=== PATIENT | female | born 1990 | race Caucasian/White ===

== ENCOUNTER 2018-12-14 19:09 | Inpatient (IN) | payer OTHER ==
[~2018-12-14] VITALS: Ht 170.2 cm; Wt 80.9 kg
[2018-12-14] MEDS ORDERED: RISP1 PO (19:36)
[2018-12-14] MEDS ORDERED: ARIP5TAB8 PO (19:36)
[2018-12-14 19:55] LABS: BASOPHILS % (AUTO) 0.5 % (0.0-2.0); EOSINOPHILS % (AUTO) 0.7 % (1.0-6.0); HEMATOCRIT 35.1 % (36-46); HEMOGLOBIN 11.5 g/dL (12.0-16.0); LYMPHOCYTES # (AUTO) 2.4 K/uL (1.0-4.8); LYMPHOCYTES % (AUTO) 25.1 % (22.0-44.0); MEAN CORPUSCULAR HGB CONC 32.7 G/dL (31.0-37.0); MEAN CORPUSCULAR VOLUME 89 fL (80-100); MONOCYTES # (AUTO) 0.8 K/uL (0.1-1.0); MONOCYTES % (AUTO) 8.1 % (2.0-9.0); NEUTROPHILS # (AUTO) 6.2 K/uL (1.8-7.7); NEUTROPHILS % (AUTO) 65.6 % (40.0-70.0); PLATELET COUNT (AUTO) 334 K/uL (150-450); RED BLOOD CELL COUNT(AUTO) 3.95 MIL/uL (4.00-5.20); RED CELL DISTRIBUTION WIDTH 15.7 % (11.5-14.5)
[2018-12-14 20:07] LABS: ANION GAP 8 mmol/L (8-16); CALCIUM, TOTAL 9.2 mg/dL (8.8-10.5); CARBON DIOXIDE 27 mmol/L (22-29); CHLORIDE 105 mmol/L (98-107); CREATININE 0.75 mg/dL (0.60-1.30); GLOMERULAR FILTR. RATE CALC > 60 mL/min (>60); GLUCOSE,RANDOM 107 mg/dL (70-110); POTASSIUM 3.3 mmol/L (3.5-5.1); SODIUM SERUM 140 mmol/L (136-145); UREA NITROGEN, BLOOD 8 mg/dL (7-18)
[2018-12-14 20:15] LABS: ALANINE AMINOTRANSFERASE 16 U/L (12-78); ALBUMIN 3.5 g/dL (3.4-5.0); ALKALINE PHOSPHATASE 74 U/L (46-116); ASPARTATE AMINOTRANSFERASE 15 U/L (15-37); BILIRUBIN,TOTAL 0.2 mg/dL (0.1-1.0); TOTAL PROTEIN, SERUM 7.2 g/dL (6.4-8.2)
[2018-12-14 20:50] LABS: AMPHET/METH SCREEN,URINE NEGATIVE (NEGATIVE); BARBITURATE SCREEN, URINE NEGATIVE (NEGATIVE); BENZODIAZEPINES SCREEN,URINE NEGATIVE (NEGATIVE); CANNABINOID SCREEN,URINE POSITIVE (NEGATIVE); COCAINE SCREEN,URINE NEGATIVE (NEGATIVE); METHADONE SCREEN, URINE NEGATIVE (NEGATIVE); OPIATE SCREEN,URINE NEGATIVE (NEGATIVE)
[2018-12-14 20:51] LABS: PHENCYCLIDINE SCREEN,URINE NEGATIVE (NEGATIVE)
[2018-12-14] MEDS ORDERED: POTASSIUM CHLORIDE 20 MEQ ER TABLET PO ONE (21:00)
[2018-12-15] MEDS: HydrOXYzine PAMOATE 50 MG CAPSULE PO PRN ×2 (01:13→10:04)
[2018-12-15] MEDS ORDERED: IBUPROFEN 800 MG TABLET PO ONE (02:45)
[2018-12-15] MEDS: TraZODone HCL 50 MG TABLET PO PRN ×3 (02:51→20:13)
[2018-12-15] MEDS: HALOPERIDOL 5 MG TABLET PO PRN ×2 (02:51→17:16)
[2018-12-15 05:52] LABS: CHOL/HDL RATIO 3.1 (3.9-5.7)
[2018-12-15 13:00] VITALS: BP 101/60
[2018-12-15] MEDS ORDERED: MAGNESIUM HYDROXIDE SUSPENSION 30 ML UDCUP PO PRN (15:45)
[2018-12-15] MEDS ORDERED: ALBUTEROL SULFATE HFA 90 MCG/PUFF 8 GM INHALER IH PRN (15:45)
[2018-12-15] MEDS ORDERED: MAG HYDROX/AL HYDROX/SIMETH ES 30 ML SUSPENSION UDCUP PO PRN (15:45)
[2018-12-15] MEDS ORDERED: ACETAMINOPHEN 325 MG TABLET PO PRN (15:45)
[2018-12-15] MEDS ORDERED: ONDANSETRON HCL 4 MG TABLET PO PRN (15:45)
[2018-12-15] MEDS ORDERED: PETROLATUM,WHITE 28 GM JELLY TP PRN (15:45)
[2018-12-15] MEDS ORDERED: NICOTINE 14 MG/24 HOUR PATCH TD PRN (15:45)
[2018-12-15] MEDS ORDERED: DOCUSATE SODIUM 100 MG CAPSULE PO PRN (15:45)
[2018-12-15] MEDS ORDERED: LOPERAMIDE HCL 2 MG CAPSULE PO PRN (15:45)
[2018-12-15] MEDS ORDERED: CloNIDine HCL 0.1 MG TABLET PO PRN (15:45)
[2018-12-15] MEDS ORDERED: GuaiFENesin/D-METHORPHAN [SUGAR-FREE] 200-20MG/10 ML SYRUP UDCUP PO PRN (15:45)
[2018-12-15] MEDS ORDERED: IBUPROFEN 400 MG TABLET PO PRN (15:45)
[2018-12-15 19:17] VITALS: BP 110/69
[2018-12-15] MEDS: OLANZapine 5 MG TABLET PO SCH (20:13)
[2018-12-15 23:25] VITALS: BP 109/56
[2018-12-16 04:35] VITALS: BP 96/60
[2018-12-16 07:43] VITALS: BP 107/65
[2018-12-16] MEDS: HydrOXYzine PAMOATE 50 MG CAPSULE PO PRN ×2 (08:00→12:30)
[2018-12-16 11:56] VITALS: BP 98/53
[2018-12-16 15:57] VITALS: BP 109/78
[2018-12-16] MEDS: HALOPERIDOL 5 MG TABLET PO PRN (18:17)
[2018-12-16 20:40] VITALS: BP 118/74
[2018-12-16] MEDS: OLANZapine 5 MG TABLET PO SCH (21:23)
[2018-12-17 04:53] VITALS: BP 101/68
[2018-12-17] MEDS: HALOPERIDOL 5 MG TABLET PO PRN (07:51)
[2018-12-17 08:04] VITALS: BP 111/73
[2018-12-17] MEDS ORDERED: TRIAMCINOLONE 0.5% 15 GM CREAM TP PRN (11:45)
[2018-12-17 11:59] VITALS: BP 96/74
[2018-12-17] MEDS ORDERED: OLAN5TAB27 PO (12:33)
[2018-12-17] MEDS: HydrOXYzine PAMOATE 50 MG CAPSULE PO PRN (12:43)
[2018-12-17] MEDS ORDERED: OLAN10TA3 PO (12:47)
== END 2018-12-17 14:10 | DRG 885 ==
LOC: EMS 19:10 → 6S 12-15 12:25
DX: F31.4 Bipolar disorder, current episode depressed, severe, without psychotic features (principal); R45.851 Suicidal ideations; E87.6 Hypokalemia; F19.10 Other psychoactive substance abuse, uncomplicated; F60.3 Borderline personality disorder; F17.210 Nicotine dependence, cigarettes, uncomplicated; F12.10 Cannabis abuse, uncomplicated; F41.9 Anxiety disorder, unspecified; Z91.5 Personal history of self-harm
CPT/HCPCS: 84132; G0480

== ENCOUNTER 2018-12-24 14:56 | Inpatient (IN) | payer OTHER ==
[~2018-12-24] VITALS: Ht 172.7 cm; Wt 86.4 kg
[~2018-12-24 14:56] MED LIST: OLAN10TA3 PO; OLAN5TAB27 PO
[2018-12-24 15:36] LABS: BASOPHILS % (AUTO) 0.5 % (0.0-2.0); EOSINOPHILS % (AUTO) 0.7 % (1.0-6.0); HEMATOCRIT 33.7 % (36-46); LYMPHOCYTES % (AUTO) 26.7 % (22.0-44.0); MEAN CORPUSCULAR HEMOGLOBIN 29.2 pg (26.0-34.0); MEAN CORPUSCULAR HGB CONC 32.5 G/dL (31.0-37.0); MEAN CORPUSCULAR VOLUME 90 fL (80-100); MONOCYTES # (AUTO) 0.6 K/uL (0.1-1.0); MONOCYTES % (AUTO) 7.9 % (2.0-9.0); NEUTROPHILS # (AUTO) 4.8 K/uL (1.8-7.7); NEUTROPHILS % (AUTO) 64.2 % (40.0-70.0); PLATELET COUNT (AUTO) 377 K/uL (150-450); RED BLOOD CELL COUNT(AUTO) 3.75 MIL/uL (4.00-5.20); RED CELL DISTRIBUTION WIDTH 15.1 % (11.5-14.5)
[2018-12-24 15:44] LABS: ANION GAP 11 mmol/L (8-16); CALCIUM, TOTAL 8.9 mg/dL (8.8-10.5); CARBON DIOXIDE 29 mmol/L (22-29); CHLORIDE 103 mmol/L (98-107); CREATININE 0.78 mg/dL (0.60-1.30); GLOMERULAR FILTR. RATE CALC > 60 mL/min (>60); GLUCOSE,RANDOM 93 mg/dL (70-110); SODIUM SERUM 143 mmol/L (136-145); UREA NITROGEN, BLOOD 10 mg/dL (7-18)
[2018-12-24 16:04] LABS: ALANINE AMINOTRANSFERASE 14 U/L (12-78); ALBUMIN 3.6 g/dL (3.4-5.0); ALKALINE PHOSPHATASE 71 U/L (46-116); ASPARTATE AMINOTRANSFERASE 16 U/L (15-37); BILIRUBIN,TOTAL 0.3 mg/dL (0.1-1.0); HCG,QUANTITATIVE < 1 mIU/mL (0-6); TOTAL PROTEIN, SERUM 7.5 g/dL (6.4-8.2)
[2018-12-24 16:06] LABS: ACETAMINOPHEN < 2 mcg/mL (10-30)
[2018-12-24 16:07] LABS: SALICYLATE 1.2 mg/dL (2.8-20.0)
[2018-12-24] MEDS ORDERED: 0.9% SODIUM CHLORIDE 10 ML SYRINGE IVP PRN ×2 (16:30→20:15)
[2018-12-24 17:25] VITALS: BP 132/85
[2018-12-24 20:00] VITALS: BP 121/77
[2018-12-24] MEDS ORDERED: OxyCODONE HCL/ACETAMINOPHEN 5-325 MG TABLET PO PRN ×2 (20:15)
[2018-12-24] MEDS ORDERED: FAMOTIDINE 10 MG/ML 2 ML VIAL IVP SCH (20:15)
[2018-12-24] MEDS ORDERED: ONDANSETRON HCL 4 MG/2 ML VIAL IVP PRN (20:15)
[2018-12-24] MEDS ORDERED: TraZODone HCL 50 MG TABLET PO PRN (20:30)
[2018-12-24] MEDS: DOCUSATE SODIUM 100 MG CAPSULE PO SCH (20:37)
[2018-12-24] MEDS: OLANZapine 5 MG TABLET PO SCH (20:37)
[2018-12-24] MEDS: HALOPERIDOL 5 MG TABLET PO PRN (20:37)
[2018-12-24 21:46] LABS: AMPHET/METH SCREEN,URINE NEGATIVE (NEGATIVE); BARBITURATE SCREEN, URINE NEGATIVE (NEGATIVE); BENZODIAZEPINES SCREEN,URINE NEGATIVE (NEGATIVE); CANNABINOID SCREEN,URINE POSITIVE (NEGATIVE); COCAINE SCREEN,URINE NEGATIVE (NEGATIVE); METHADONE SCREEN, URINE NEGATIVE (NEGATIVE); OPIATE SCREEN,URINE NEGATIVE (NEGATIVE)
[2018-12-24 21:47] LABS: PHENCYCLIDINE SCREEN,URINE NEGATIVE (NEGATIVE)
[2018-12-25] VITALS: BP 118/71
[2018-12-25 04:00] VITALS: BP 117/69
[2018-12-25 05:27] LABS: BASOPHILS % (AUTO) 0.6 % (0.0-2.0); EOSINOPHILS % (AUTO) 1.8 % (1.0-6.0); HEMATOCRIT 32.9 % (36-46); HEMOGLOBIN 10.8 g/dL (12.0-16.0); LYMPHOCYTES # (AUTO) 2.5 K/uL (1.0-4.8); LYMPHOCYTES % (AUTO) 34.8 % (22.0-44.0); MEAN CORPUSCULAR HEMOGLOBIN 29.5 pg (26.0-34.0); MEAN CORPUSCULAR HGB CONC 32.8 G/dL (31.0-37.0); MEAN CORPUSCULAR VOLUME 90 fL (80-100); MONOCYTES # (AUTO) 0.6 K/uL (0.1-1.0); MONOCYTES % (AUTO) 8.9 % (2.0-9.0); NEUTROPHILS # (AUTO) 3.8 K/uL (1.8-7.7); NEUTROPHILS % (AUTO) 53.9 % (40.0-70.0); PLATELET COUNT (AUTO) 337 K/uL (150-450); RED BLOOD CELL COUNT(AUTO) 3.65 MIL/uL (4.00-5.20); RED CELL DISTRIBUTION WIDTH 15.4 % (11.5-14.5)
[2018-12-25 05:34] LABS: ANION GAP 8 mmol/L (8-16); CALCIUM, TOTAL 8.6 mg/dL (8.8-10.5); CARBON DIOXIDE 25 mmol/L (22-29); CHLORIDE 105 mmol/L (98-107); CREATININE 0.83 mg/dL (0.60-1.30); GLOMERULAR FILTR. RATE CALC > 60 mL/min (>60); GLUCOSE,RANDOM 94 mg/dL (70-110); POTASSIUM 3.6 mmol/L (3.5-5.1); SODIUM SERUM 138 mmol/L (136-145); UREA NITROGEN, BLOOD 9 mg/dL (7-18)
[2018-12-25 09:00] VITALS: BP 120/70
[2018-12-25] MEDS: TRIAMCINOLONE 0.025% 15 GM CREAM TP SCH ×2 (09:00→20:58)
[2018-12-25] MEDS: DOCUSATE SODIUM 100 MG CAPSULE PO SCH ×2 (09:00→20:58)
[2018-12-25] MEDS: FAMOTIDINE 20 MG TABLET PO SCH (09:01)
[2018-12-25] MEDS: ARIPiprazole 10 MG TABLET PO SCH (10:11)
[2018-12-25] MEDS: HALOPERIDOL 5 MG TABLET PO PRN ×3 (10:40→22:40)
[2018-12-25] MEDS: HydrOXYzine PAMOATE 50 MG CAPSULE PO PRN ×2 (10:40→15:42)
[2018-12-25 11:14] VITALS: BP 115/71
[2018-12-25 16:47] VITALS: BP 111/68
[2018-12-25 20:31] VITALS: BP 116/64
[2018-12-25] MEDS: OLANZapine 5 MG TABLET PO SCH (20:57)
[2018-12-25] MEDS ORDERED: BENZTROPINE MESYLATE 1 MG TABLET PO SCH (21:00)
[2018-12-26 07:31] VITALS: BP 113/76
[2018-12-26] MEDS: FAMOTIDINE 20 MG TABLET PO SCH (08:32)
[2018-12-26] MEDS: ARIPiprazole 10 MG TABLET PO SCH (08:32)
[2018-12-26] MEDS: TRIAMCINOLONE 0.025% 15 GM CREAM TP SCH ×2 (08:33→19:54)
[2018-12-26] MEDS: DOCUSATE SODIUM 100 MG CAPSULE PO SCH ×2 (08:35→19:54)
[2018-12-26] MEDS: HydrOXYzine PAMOATE 50 MG CAPSULE PO PRN ×3 (10:31→19:11)
[2018-12-26 11:49] VITALS: BP 109/78
[2018-12-26 15:51] VITALS: BP 102/71
[2018-12-26 20:01] VITALS: BP 104/68
[2018-12-26] MEDS ORDERED: OLANZapine 10 MG TABLET PO SCH (21:00)
[2018-12-26] MEDS ORDERED: ARIPiprazole 10 MG TABLET PO SCH (21:00)
[2018-12-26 23:40] VITALS: BP 134/68
[2018-12-27] MEDS: HALOPERIDOL 5 MG TABLET PO PRN ×2 (00:25→08:00)
[2018-12-27 05:48] VITALS: BP 107/65
[2018-12-27 07:38] VITALS: BP 137/79
[2018-12-27] MEDS: FAMOTIDINE 20 MG TABLET PO SCH (07:55)
[2018-12-27] MEDS: TRIAMCINOLONE 0.025% 15 GM CREAM TP SCH (07:56)
[2018-12-27] MEDS: DOCUSATE SODIUM 100 MG CAPSULE PO SCH (07:56)
[2018-12-27] MEDS ORDERED: OLAN10TA20 PO ×2 (12:00→12:01)
== END 2018-12-27 12:05 | DRG 885 ==
LOC: EMS 14:57 → 6S 16:23
PROVIDERS: ADMIT Internal Medicine; ATTEND Internal Medicine
DX: F31.4 Bipolar disorder, current episode depressed, severe, without psychotic features (principal); F60.3 Borderline personality disorder; F44.81 Dissociative identity disorder; F12.10 Cannabis abuse, uncomplicated; F29 Unspecified psychosis not due to a substance or known physiological condition; D64.9 Anemia, unspecified; R21 Rash and other nonspecific skin eruption; F17.210 Nicotine dependence, cigarettes, uncomplicated; Z79.899 Other long term (current) drug therapy; Z98.891 History of uterine scar from previous surgery
CPT/HCPCS: 87081; G0480; G0481; J3490

== ENCOUNTER → 2020-08-21 | Emergency (ER) | payer OTHER ==
[~2020-08-21] VITALS: Ht 170.2 cm; Wt 86.4 kg
[~2020-08-21] MED LIST changes: +LORazepam 2 MG TABLET PO ONE; +OLAN10TA20 PO; -OLAN10TA3 PO; -OLAN5TAB27 PO
[2020-08-21 09:24] VITALS: BP 107/68
[2020-08-21 10:04] LABS: BASOPHILS % (AUTO) 0.4 % (0.0-2.0); EOSINOPHILS % (AUTO) 0.1 % (1.0-6.0); HEMATOCRIT 36.3 % (36-46); HEMOGLOBIN 11.8 g/dL (12.0-16.0); LYMPHOCYTES # (AUTO) 1.3 K/uL (1.0-4.8); LYMPHOCYTES % (AUTO) 17.3 % (22.0-44.0); MEAN CORPUSCULAR HEMOGLOBIN 26.3 pg (26.0-34.0); MEAN CORPUSCULAR HGB CONC 32.4 G/dL (31.0-37.0); MEAN CORPUSCULAR VOLUME 81 fL (80-100); MONOCYTES # (AUTO) 0.5 K/uL (0.1-1.0); MONOCYTES % (AUTO) 6.7 % (2.0-9.0); NEUTROPHILS # (AUTO) 5.8 K/uL (1.8-7.7); NEUTROPHILS % (AUTO) 75.5 % (40.0-70.0); PLATELET COUNT (AUTO) 362 K/uL (150-450); RED BLOOD CELL COUNT(AUTO) 4.47 MIL/uL (4.00-5.20); RED CELL DISTRIBUTION WIDTH 16.6 % (11.5-14.5)
[2020-08-21 10:11] LABS: AMPHET/METH SCREEN,URINE NEGATIVE (NEGATIVE); BARBITURATE SCREEN, URINE NEGATIVE (NEGATIVE); BENZODIAZEPINES SCREEN,URINE NEGATIVE (NEGATIVE); CANNABINOID SCREEN,URINE NEGATIVE (NEGATIVE); COCAINE SCREEN,URINE NEGATIVE (NEGATIVE); METHADONE SCREEN, URINE NEGATIVE (NEGATIVE); OPIATE SCREEN,URINE NEGATIVE (NEGATIVE)
[2020-08-21 10:11] LABS: ANION GAP 8 mmol/L (8-16); CALCIUM, TOTAL 9.3 mg/dL (8.8-10.5); CARBON DIOXIDE 27 mmol/L (22-29); CHLORIDE 104 mmol/L (98-107); CREATININE 0.87 mg/dL (0.60-1.30); GLOMERULAR FILTR. RATE CALC > 60 mL/min (>60); GLUCOSE,RANDOM 104 mg/dL (70-110); POTASSIUM 4.3 mmol/L (3.5-5.1); SODIUM SERUM 139 mmol/L (136-145); UREA NITROGEN, BLOOD 5 mg/dL (7-18)
[2020-08-21 10:12] LABS: PHENCYCLIDINE SCREEN,URINE NEGATIVE (NEGATIVE)
[2020-08-21 10:22] LABS: ALANINE AMINOTRANSFERASE 22 U/L (12-78); ALBUMIN 3.7 g/dL (3.4-5.0); ALKALINE PHOSPHATASE 99 U/L (46-116); ASPARTATE AMINOTRANSFERASE 11 U/L (15-37); BILIRUBIN,TOTAL 0.2 mg/dL (0.1-1.0); HCG,QUANTITATIVE < 1 mIU/mL (0-6); TOTAL PROTEIN, SERUM 8.4 g/dL (6.4-8.2)
== END | disposition home or self-care (01) ==
LOC: EMS 09:24
DX: F31.9 Bipolar disorder, unspecified (principal); F41.9 Anxiety disorder, unspecified; R45.851 Suicidal ideations; F17.210 Nicotine dependence, cigarettes, uncomplicated; F12.90 Cannabis use, unspecified, uncomplicated
CPT/HCPCS: 36415; 80053; 80307; 84702; 85025; 99284; G0480

== ENCOUNTER 2020-08-28 11:23 | Emergency (ER) | payer OTHER ==
[~2020-08-28] VITALS: Ht 170.2 cm; Wt 86.0 kg
[~2020-08-28 11:23] MED LIST changes: -LORazepam 2 MG TABLET PO ONE
[2020-08-28] MEDS ORDERED: LORazepam 1 MG TABLET PO ONE (12:45)
[2020-08-28 13:32] LABS: BASOPHILS % (AUTO) 0.4 % (0.0-2.0); HEMATOCRIT 33.8 % (36-46); LYMPHOCYTES # (AUTO) 2.2 K/uL (1.0-4.8); LYMPHOCYTES % (AUTO) 23.8 % (22.0-44.0); MEAN CORPUSCULAR HEMOGLOBIN 26.4 pg (26.0-34.0); MEAN CORPUSCULAR HGB CONC 32.4 G/dL (31.0-37.0); MEAN CORPUSCULAR VOLUME 82 fL (80-100); MONOCYTES # (AUTO) 0.7 K/uL (0.1-1.0); MONOCYTES % (AUTO) 7.6 % (2.0-9.0); NEUTROPHILS # (AUTO) 6.4 K/uL (1.8-7.7); NEUTROPHILS % (AUTO) 67.2 % (40.0-70.0); PLATELET COUNT (AUTO) 358 K/uL (150-450); RED BLOOD CELL COUNT(AUTO) 4.15 MIL/uL (4.00-5.20); RED CELL DISTRIBUTION WIDTH 16.7 % (11.5-14.5)
[2020-08-28 13:40] LABS: ANION GAP 9 mmol/L (8-16); CALCIUM, TOTAL 8.6 mg/dL (8.8-10.5); CARBON DIOXIDE 27 mmol/L (22-29); CHLORIDE 107 mmol/L (98-107); CREATININE 1.11 mg/dL (0.60-1.30); GLOMERULAR FILTR. RATE CALC 59 mL/min (>60); GLUCOSE,RANDOM 103 mg/dL (70-110); POTASSIUM 3.8 mmol/L (3.5-5.1); SODIUM SERUM 143 mmol/L (136-145); UREA NITROGEN, BLOOD 9 mg/dL (7-18)
[2020-08-28 13:52] LABS: ALANINE AMINOTRANSFERASE 17 U/L (12-78); ALBUMIN 3.3 g/dL (3.4-5.0); ALKALINE PHOSPHATASE 86 U/L (46-116); ASPARTATE AMINOTRANSFERASE 9 U/L (15-37); BILIRUBIN,TOTAL 0.1 mg/dL (0.1-1.0); HCG,QUANTITATIVE < 1 mIU/mL (0-6); TOTAL PROTEIN, SERUM 7.2 g/dL (6.4-8.2)
[2020-08-28 14:05] LABS: LITHIUM 0.25 mmol/L (0.60-1.20)
[2020-08-28 14:17] VITALS: BP 98/63
== END 2020-08-28 15:33 | disposition home or self-care (01) ==
LOC: EMS 11:23
DX: F41.9 Anxiety disorder, unspecified (principal); F31.9 Bipolar disorder, unspecified; F17.210 Nicotine dependence, cigarettes, uncomplicated; F12.90 Cannabis use, unspecified, uncomplicated
CPT/HCPCS: 36415; 80053; 80178; 84702; 85025; 99283; G0480; 99284

== ENCOUNTER 2021-02-08 19:12 | Emergency (ER) | payer OTHER ==
[~2021-02-08] VITALS: Ht 162.6 cm; Wt 77.3 kg
[~2021-02-08 19:12] MED LIST changes: +OLAN10 PO; -OLAN10TA20 PO
[2021-02-08 19:41] LABS: APPEARANCE,URINE CLEAR (CLEAR); BILIRUBIN,URINE NEGATIVE (NEGATIVE); GLUCOSE, URINE (UA) NEGATIVE (NEGATIVE); KETONES,URINE NEGATIVE (NEGATIVE); LEUKOCYTE ESTERASE ,URINE NEGATIVE (NEGATIVE); NITRATE,URINE NEGATIVE (NEGATIVE); OCCULT BLOOD,URINE SMALL (NEGATIVE); PROTEIN,URINE NEGATIVE (NEGATIVE); UROBILINOGEN,URINE 0.2 mg/dL (<=1.0)
[2021-02-08 19:45] LABS: BACTERIA,URINE None Seen /HPF (None Seen); RBC,URINE None Seen /HPF (0-2); WBC,URINE None Seen /HPF (0-5)
[2021-02-08] MEDS ORDERED: DiphenhydrAMINE HCL 50 MG/ML VIAL IM ONE (19:45)
[2021-02-08] MEDS ORDERED: LORazepam 2 MG/ML VIAL IM ONE (19:45)
[2021-02-08] MEDS ORDERED: ADENOSINE 3 MG/ML 2 ML VIAL IVP ONE ×2 (19:45)
[2021-02-08] MEDS ORDERED: SODIUM CHLORIDE 0.9% 1,000 ML IV ONE (19:45)
[2021-02-08 20:05] LABS: BASOPHILS % (AUTO) 0.3 % (0.0-2.0); EOSINOPHILS % (AUTO) 1.1 % (1.0-6.0); HEMATOCRIT 33.4 % (36-46); HEMOGLOBIN 10.7 g/dL (12.0-16.0); LYMPHOCYTES # (AUTO) 3.7 K/uL (1.0-4.8); LYMPHOCYTES % (AUTO) 33.1 % (22.0-44.0); MEAN CORPUSCULAR HEMOGLOBIN 26.3 pg (26.0-34.0); MEAN CORPUSCULAR HGB CONC 31.9 G/dL (31.0-37.0); MEAN CORPUSCULAR VOLUME 82 fL (80-100); MONOCYTES # (AUTO) 0.8 K/uL (0.1-1.0); MONOCYTES % (AUTO) 7.1 % (2.0-9.0); NEUTROPHILS # (AUTO) 6.5 K/uL (1.8-7.7); NEUTROPHILS % (AUTO) 58.4 % (40.0-70.0); PLATELET COUNT (AUTO) 373 K/uL (150-450); RED BLOOD CELL COUNT(AUTO) 4.06 MIL/uL (4.00-5.20); RED CELL DISTRIBUTION WIDTH 17.7 % (11.5-14.5)
[2021-02-08 20:18] LABS: ANION GAP 12 mmol/L (8-16); CALCIUM, TOTAL 8.8 mg/dL (8.8-10.5); CARBON DIOXIDE 25 mmol/L (22-29); CHLORIDE 106 mmol/L (98-107); GLOMERULAR FILTR. RATE CALC > 60 mL/min (>60); GLUCOSE,RANDOM 109 mg/dL (70-110); POTASSIUM 3.2 mmol/L (3.5-5.1); SODIUM SERUM 143 mmol/L (136-145); UREA NITROGEN, BLOOD 9 mg/dL (7-18)
[2021-02-08 20:28] LABS: LITHIUM 0.56 mmol/L (0.60-1.20)
[2021-02-08 20:29] LABS: ALANINE AMINOTRANSFERASE 22 U/L (12-78); ALBUMIN 3.6 g/dL (3.4-5.0); ALKALINE PHOSPHATASE 86 U/L (46-116); ASPARTATE AMINOTRANSFERASE 19 U/L (15-37); BILIRUBIN,TOTAL 0.3 mg/dL (0.1-1.0); HCG,QUANTITATIVE < 1 mIU/mL (0-6)
[2021-02-08 20:59] VITALS: BP 121/96
== END 2021-02-08 21:30 | disposition home or self-care (01) ==
LOC: EMS 19:14
DX: I47.1 Supraventricular tachycardia (principal); R79.0 Abnormal level of blood mineral; R00.2 Palpitations; F31.9 Bipolar disorder, unspecified; F17.210 Nicotine dependence, cigarettes, uncomplicated; F12.90 Cannabis use, unspecified, uncomplicated
CPT/HCPCS: 36415; 80053; 80178; 81001; 84702; 85025; 92960; 93005; 96360; 96372; 99291; J0153; J1200; J2060; 96361; 96374

== ENCOUNTER 2021-02-27 07:35 | Emergency (ER) | payer OTHER ==
[~2021-02-27] VITALS: Ht 157.5 cm; Wt 81.8 kg
[2021-02-27 07:45] VITALS: BP 139/85
== END 2021-02-27 07:55 | disposition home or self-care (01) ==
LOC: EMS 07:44
DX: Z53.21 Procedure and treatment not carried out due to patient leaving prior to being seen by health care provider (principal)

== ENCOUNTER 2023-03-17 13:45 | Inpatient (IN) | payer MEDICAID, OTHER ==
[~2023-03-17] VITALS: Ht 170.2 cm; Wt 96.2 kg
[2023-03-17 14:58] LABS: BASOPHILS % (AUTO) 0.8 % (0.0-2.0); EOSINOPHILS % (AUTO) 0.3 % (1.0-6.0); HEMATOCRIT 37.2 % (36-46); HEMOGLOBIN 12.1 g/dL (12.0-16.0); LYMPHOCYTES # (AUTO) 4.8 K/uL (1.0-4.8); LYMPHOCYTES % (AUTO) 34.3 % (22.0-44.0); MEAN CORPUSCULAR HEMOGLOBIN 27.2 pg (26.0-34.0); MEAN CORPUSCULAR HGB CONC 32.5 G/dL (31.0-37.0); MEAN CORPUSCULAR VOLUME 84 fL (80-100); MONOCYTES # (AUTO) 1.3 K/uL (0.1-1.0); MONOCYTES % (AUTO) 9.2 % (2.0-9.0); NEUTROPHILS # (AUTO) 7.7 K/uL (1.8-7.7); NEUTROPHILS % (AUTO) 55.4 % (40.0-70.0); RED BLOOD CELL COUNT(AUTO) 4.44 MIL/uL (4.00-5.20); RED CELL DISTRIBUTION WIDTH 16.2 % (11.5-14.5); WHITE BLOOD COUNT (AUTO) 13.9 K/uL (4.5-11.0)
[2023-03-17 15:16] LABS: ANION GAP 13 mmol/L (8-16); CALCIUM, TOTAL 8.9 mg/dL (8.8-10.5); CARBON DIOXIDE 25 mmol/L (22-29); CHLORIDE 103 mmol/L (98-107); CREATININE 0.97 mg/dL (0.60-1.30); GLOMERULAR FILTR. RATE CALC > 60 mL/min (>60); GLUCOSE,RANDOM 121 mg/dL (70-110); POTASSIUM 3.5 mmol/L (3.5-5.1); SODIUM SERUM 141 mmol/L (136-145); UREA NITROGEN, BLOOD 9 mg/dL (7-18)
[2023-03-17 15:17] LABS: PLATELET COUNT (AUTO) 324 K/uL (150-450)
[2023-03-17 15:18] LABS: ALCOHOL, BLOOD (SERUM) < 3 mg/dL (0-10)
[2023-03-17 15:22] LABS: ALANINE AMINOTRANSFERASE 33 U/L (12-78); ALBUMIN 3.9 g/dL (3.4-5.0); ALKALINE PHOSPHATASE 83 U/L (46-116); ASPARTATE AMINOTRANSFERASE 37 U/L (15-37); BILIRUBIN,TOTAL 0.4 mg/dL (0.1-1.0); TOTAL PROTEIN, SERUM 8.8 g/dL (6.4-8.2)
[2023-03-17 19:44] LABS: COVID AG,FIA SOURCE NASAL SWAB
[2023-03-17] MEDS: LORazepam 2 MG TABLET PO PRN (19:56)
[2023-03-17] MEDS: HALOPERIDOL 5 MG TABLET PO PRN (19:56)
[2023-03-17 20:04] LABS: SARS-COV2 (COVID) ANTIGEN,FIA Negative (Negative)
[2023-03-17] MEDS ORDERED: LORazepam 2 MG/ML VIAL IM ONE ×2 (20:45)
[2023-03-17] MEDS ORDERED: HALOPERIDOL LACTATE 5 MG/ML VIAL IM ONE ×2 (20:45)
[2023-03-18 01:50] VITALS: BP 105/70; PULSE 96; RESP 20; TEMP 97.6; O2SAT 96
[2023-03-18 08:44] VITALS: BP 104/60; PULSE 90; RESP 19; TEMP 97; O2SAT 97
[2023-03-18 08:44] LABS: CHOL/HDL RATIO 3.2 (3.9-5.7); CHOLESTEROL 159 mg/dL (131-200); FREE T4 (FREE THYROXINE) 1.58 ng/dL (0.76-1.46); HDL CHOLESTEROL 50 mg/dL (40-60); LDL CHOL (CALC.) 88 mg/dL (0-130); THYROID STIMULATING HORMONE 1.47 uIU/mL (0.36-3.74); TRIGLYCERIDES 103 mg/dL (15-150)
[2023-03-18] MEDS: OLANZapine 5 MG TABLET PO SCH (16:25)
[2023-03-18] MEDS ORDERED: PETROLATUM,WHITE 28 GM JELLY TP PRN (16:30)
[2023-03-18 20:37] VITALS: BP 120/75; PULSE 100; RESP 18; TEMP 97.8; O2SAT 98
[2023-03-19] MEDS: HALOPERIDOL 5 MG TABLET PO PRN (04:27)
[2023-03-19] MEDS: LORazepam 2 MG TABLET PO PRN (04:27)
[2023-03-19] MEDS: OLANZapine 5 MG TABLET PO SCH ×2 (08:38→16:20)
[2023-03-19 09:02] VITALS: BP 124/85; PULSE 90; RESP 17; TEMP 97.4; O2SAT 98
[2023-03-19 20:21] VITALS: BP 134/88; PULSE 75; RESP 18; TEMP 97.2; O2SAT 98
[2023-03-20 08:23] VITALS: RESP 16
[2023-03-20] MEDS: OLANZapine 5 MG TABLET PO SCH ×2 (08:48→16:26)
[2023-03-20] MEDS: NICOTINE 7 MG/24 HOUR PATCH TD PRN (09:46)
[2023-03-20] MEDS: LORazepam 2 MG TABLET PO PRN (16:27)
[2023-03-20] MEDS ORDERED: LORazepam 2 MG/ML VIAL ONE (19:06)
[2023-03-20] MEDS ORDERED: HALOPERIDOL LACTATE 5 MG/ML VIAL ONE (19:07)
[2023-03-20] MEDS ORDERED: DiphenhydrAMINE HCL 50 MG/ML VIAL ONE (19:07)
[2023-03-20] MEDS ORDERED: DiphenhydrAMINE HCL 50 MG/ML VIAL IM ONE (19:15)
[2023-03-20] MEDS ORDERED: LORazepam 2 MG/ML VIAL IM ONE (19:15)
[2023-03-20] MEDS ORDERED: HALOPERIDOL LACTATE 5 MG/ML VIAL IM ONE (19:15)
[2023-03-20 22:51] VITALS: RESP 18; TEMP 98
[2023-03-21 08:23] VITALS: BP 130/84; PULSE 100; RESP 18; TEMP 98.3; O2SAT 96
[2023-03-21] MEDS: OLANZapine 5 MG TABLET PO SCH ×2 (08:35→16:26)
[2023-03-21] MEDS: HALOPERIDOL 5 MG TABLET PO PRN (08:35)
[2023-03-21] MEDS: LORazepam 2 MG TABLET PO PRN ×2 (08:35→16:26)
[2023-03-21] MEDS: NICOTINE 7 MG/24 HOUR PATCH TD PRN (08:43)
[2023-03-22 00:03] VITALS: RESP 18; TEMP 97.6
[2023-03-22] MEDS: ZOLPIDEM TARTRATE 10 MG TABLET PO PRN (01:13)
[2023-03-22] MEDS: OLANZapine 5 MG TABLET PO SCH ×2 (08:18→17:22)
[2023-03-22] MEDS: NICOTINE 7 MG/24 HOUR PATCH TD PRN (08:20)
[2023-03-22 08:36] VITALS: BP 127/87; PULSE 100; RESP 18; TEMP 97.5; O2SAT 97
[2023-03-22 20:53] VITALS: BP 119/80; PULSE 118; RESP 17; TEMP 97.7; O2SAT 99
[2023-03-22] MEDS ORDERED: LOPERAMIDE HCL 2 MG CAPSULE PO PRN (22:15)
[2023-03-22] MEDS ORDERED: ALBUTEROL SULFATE HFA 90 MCG/PUFF 8 GM INHALER IH PRN (22:15)
[2023-03-22] MEDS ORDERED: ONDANSETRON HCL 4 MG TABLET PO PRN (22:15)
[2023-03-22] MEDS ORDERED: GuaiFENesin/D-METHORPHAN [SUGAR-FREE] 200-20MG/10 ML SYRUP UDCUP PO PRN (22:15)
[2023-03-22] MEDS ORDERED: CloNIDine HCL 0.1 MG TABLET PO PRN (22:15)
[2023-03-22] MEDS ORDERED: MAGNESIUM HYDROXIDE SUSPENSION 30 ML UDCUP PO PRN (22:15)
[2023-03-22] MEDS ORDERED: DOCUSATE SODIUM 100 MG CAPSULE PO PRN (22:15)
[2023-03-22] MEDS: LORazepam 2 MG TABLET PO PRN (22:17)
[2023-03-23] MEDS: OLANZapine 5 MG TABLET PO SCH ×2 (08:17→16:08)
[2023-03-23] MEDS: HALOPERIDOL 5 MG TABLET PO PRN (08:18)
[2023-03-23] MEDS: LORazepam 2 MG TABLET PO PRN (08:18)
[2023-03-23] MEDS: NICOTINE 7 MG/24 HOUR PATCH TD PRN (09:52)
[2023-03-23 13:06] VITALS: BP 137/82; PULSE 97; RESP 18; TEMP 97.3; O2SAT 97
[2023-03-23 22:05] VITALS: BP 132/90; PULSE 99; RESP 18; TEMP 97.2; O2SAT 98
[2023-03-23] MEDS: ZOLPIDEM TARTRATE 10 MG TABLET PO PRN (23:49)
[2023-03-24] MEDS: OLANZapine 5 MG TABLET PO SCH ×2 (08:12→16:24)
[2023-03-24 08:15] VITALS: BP 123/86; PULSE 100; RESP 17; TEMP 97.6; O2SAT 98
[2023-03-24] MEDS: LORazepam 2 MG TABLET PO PRN ×2 (08:39→13:26)
[2023-03-24] MEDS: MAG HYDROX/ALUMINUM HYD/SIMETH ES 30 ML SUSPENSION UDCUP PO PRN (08:54)
[2023-03-24] MEDS: NICOTINE 7 MG/24 HOUR PATCH TD PRN (09:15)
[2023-03-24] MEDS: HALOPERIDOL 5 MG TABLET PO PRN (13:26)
[2023-03-24 20:34] VITALS: BP 109/70; PULSE 87; RESP 18; TEMP 96.9; O2SAT 100
[2023-03-25 08:09] VITALS: BP 131/82; PULSE 94; RESP 18; TEMP 97.9; O2SAT 99
[2023-03-25] MEDS: OLANZapine 5 MG TABLET PO SCH ×2 (08:13→20:37)
[2023-03-25] MEDS: NICOTINE 7 MG/24 HOUR PATCH TD PRN (08:14)
[2023-03-25] MEDS: MAG HYDROX/ALUMINUM HYD/SIMETH ES 30 ML SUSPENSION UDCUP PO PRN ×2 (09:30→19:28)
[2023-03-25] MEDS: IBUPROFEN 400 MG TABLET PO PRN (20:36)
[2023-03-25 22:09] VITALS: BP 107/69; PULSE 95; RESP 18; TEMP 97.5; O2SAT 97
[2023-03-26] MEDS: OLANZapine 5 MG TABLET PO SCH ×3 (08:12→21:55)
[2023-03-26] MEDS: NICOTINE 7 MG/24 HOUR PATCH TD PRN (08:13)
[2023-03-26 08:27] VITALS: BP 101/79; PULSE 99; RESP 19; TEMP 98.1; O2SAT 98
[2023-03-26] MEDS: HALOPERIDOL 5 MG TABLET PO PRN (19:55)
[2023-03-26] MEDS: IBUPROFEN 400 MG TABLET PO PRN (19:56)
[2023-03-26 20:11] VITALS: BP 118/86; PULSE 102; RESP 18; TEMP 98; O2SAT 96
[2023-03-26 20:58] VITALS: RESP 18
[2023-03-27 02:15] VITALS: BP 102/62; PULSE 82; RESP 18; TEMP 96.4; O2SAT 99
[2023-03-27] MEDS: ACETAMINOPHEN 325 MG TABLET PO PRN (02:19)
[2023-03-27] MEDS: OLANZapine 5 MG TABLET PO SCH ×2 (08:22→21:56)
[2023-03-27 08:55] VITALS: BP 123/77; PULSE 96; RESP 18; TEMP 97.8; O2SAT 97
[2023-03-27] MEDS: NICOTINE 7 MG/24 HOUR PATCH TD PRN (13:02)
[2023-03-27 17:35] VITALS: RESP 17
[2023-03-27] MEDS: IBUPROFEN 400 MG TABLET PO PRN (17:40)
[2023-03-27] MEDS: HALOPERIDOL 5 MG TABLET PO PRN (18:51)
[2023-03-27 20:26] VITALS: BP 130/79; PULSE 109; RESP 18; TEMP 98.1; O2SAT 97
[2023-03-28 05:44] VITALS: BP 133/80; PULSE 95; RESP 19; TEMP 97.7; O2SAT 98
[2023-03-28] MEDS: ACETAMINOPHEN 325 MG TABLET PO PRN (05:46)
[2023-03-28 08:37] VITALS: BP 120/87; PULSE 69; RESP 18; TEMP 97.8; O2SAT 97
[2023-03-28] MEDS: OLANZapine 5 MG TABLET PO SCH (08:58)
[2023-03-28] MEDS: NICOTINE 7 MG/24 HOUR PATCH TD PRN (10:19)
[2023-03-28] MEDS ORDERED: OLAN5TAB52 PO (13:36)
== END 2023-03-28 14:40 | disposition home or self-care (01) | DRG 750 ==
LOC: EMS 13:45 → B3A 19:30 → B2S 03-25 16:53
PROVIDERS: ADMIT Psychiatry & Neurology Child & Adolescent Psychiatry; ATTEND Psychiatry & Neurology Child & Adolescent Psychiatry
DX: F20.9 Schizophrenia, unspecified (principal); D72.829 Elevated white blood cell count, unspecified; F12.90 Cannabis use, unspecified, uncomplicated; F17.210 Nicotine dependence, cigarettes, uncomplicated; R73.9 Hyperglycemia, unspecified; Z20.822 Contact with and (suspected) exposure to COVID-19; F31.9 Bipolar disorder, unspecified; F60.3 Borderline personality disorder; Z98.891 History of uterine scar from previous surgery; Z59.00 Homelessness unspecified
CPT/HCPCS: 80053; 80061; 84439; 84443; 84703; 85025; 99291; G0480; J1200; J1630; J2060; Q0162